=== PATIENT | female | born 1965 | race Caucasian/White ===

== ENCOUNTER 2017-03-09 08:26 | Day surgery (SDC) | payer OTHER ==
[2016-04-05 07:57] VITALS: BMI 44.2
[2017-03-09] MEDS ORDERED: Lactated Ringer's 500 ML IV ONE (08:37)
[2017-03-09] MEDS ORDERED: Propofol 10 mg/ml Inj (20 ML) ONE ×3 (09:09→09:29)
[2017-03-09] MEDS ORDERED: Lidocaine 2% MPF (5 ml) Inj ONE (09:10)
[2017-03-09 09:40] VITALS: TEMP 97
[2017-03-09 09:52] VITALS: BP 125/78; PULSE 84; RESP 12; O2SAT 95
== END 2017-03-09 09:53 | disposition home or self-care (01) ==
LOC: H.ENDO 08:26
PROVIDERS: ATTEND Internal Medicine Gastroenterology
DX: K21.0 Gastro-esophageal reflux disease with esophagitis (principal); K29.70 Gastritis, unspecified, without bleeding; K44.9 Diaphragmatic hernia without obstruction or gangrene; K25.3 Acute gastric ulcer without hemorrhage or perforation
CPT/HCPCS: 43239; 88305; J2704; J7120